=== PATIENT | female | born 1955 | race Caucasian/White ===

== ENCOUNTER 2016-10-26 18:32 | Emergency (ER) | payer OTHER, MEDICAID ==
[~2016-10-26] VITALS: Ht 162.6 cm; Wt 133.0 kg
[~2016-10-26 18:32] MED LIST: FURO20TA3 PO; GABA300C16 PO; HYDR-3498 PO; POTA8TAB2 PO
[2016-10-26 18:38] VITALS: Ht 162.6 cm; Wt 133.0 kg
[2016-10-26] MEDS ORDERED: morphine 4 MG/ML VIAL IV STA (19:09)
[2016-10-26] MEDS ORDERED: ONDANSETRON 4 MG INJ IV STA (19:09)
[2016-10-26 19:35] LABS: ADD SCAN DIFF NO
[2016-10-26 19:38] LABS: BASOPHILS % 0.4 % (0.0-2.0); EOSINOPHILS # 0.1 10^3/ul (0.0-0.5); EOSINOPHILS % 1.4 % (0.0-7.0); HEMATOCRIT 37.6 % (37.0-47.0); HEMOGLOBIN 12.4 g/dl (12.0-16.0); LYMPHOCYTES # 2.6 10^3/ul (0.8-2.9); LYMPHOCYTES % 35.5 % (15.0-51.0); MEAN CORPUSCULAR HEMOGLOBIN 32.9 pg (29.0-33.0); MEAN CORPUSCULAR VOLUME 99.7 fl (82.0-101.0); MEAN PLATELET VOLUME 10.5 fl (7.4-10.4); MONOCYTE # 0.5 10^3/ul (0.3-0.9); MONOCYTES % 7.4 % (0.0-11.0); PLATELET COUNT 219 10^3/UL (140-415); RED BLOOD COUNT 3.77 10^6/ul (4.20-5.40); RED CELL DISTRIBUTION WIDTH 13.2 % (11.5-14.5); WHITE BLOOD COUNT 7.3 10^3/ul (4.8-10.8)
[2016-10-26 19:39] LABS: ADD UMIC YES; URINE BILIRUBIN (Dip) NEGATIVE (NEGATIVE); URINE BLOOD (Dip) TRACE (NEGATIVE); URINE COLOR LT. YELLOW (YELLOW); URINE GLUCOSE (Dip) NEGATIVE (NEGATIVE); URINE KETONES (Dip) NEGATIVE (NEGATIVE); URINE LEUKOCYTE ESTERASE (Dip) NEGATIVE (NEGATIVE); URINE NITRITE (Dip) NEGATIVE (NEGATIVE); URINE TOTAL PROTEIN (Dip) NEGATIVE (NEGATIVE); URINE UROBILINOGEN (Dip) 0.2 E.U./dL (0.1-1.0)
[2016-10-26] MEDS ORDERED: GLIP-95 PO (19:47)
[2016-10-26] MEDS ORDERED: METF500T4 PO (19:47)
[2016-10-26] MEDS ORDERED: GEMF600T60 PO (19:48)
[2016-10-26 19:59] LABS: SQUAMOUS EPITHELIAL CELL,UR FEW; URINE RBCS 0-2 /HPF (0)
[2016-10-26 20:03] LABS: ALBUMIN 3.9 g/dl (3.3-4.9); ALBUMIN/GLOBULIN RATIO 1.11; BILIRUBIN,INDIRECT 0.5 mg/dl (0-1.1); BILIRUBIN,TOTAL 0.5 mg/dl (0.2-1.3); CALCIUM 9.1 mg/dl (8.4-10.2); CREATININE 0.59 mg/dl (0.44-1.00); POTASSIUM 4.1 mmol/L (3.5-5.1); TOTAL PROTEIN 7.4 g/dl (6.1-8.1)
[2016-10-26 20:22] VITALS: TEMP 98.4
--- NOTE | 2016-10-26 20:41 | RADRPT ---
PROCEDURE: CT abdomen and pelvis without contrast. CLINICAL INDICATION: Abdominal Pain TECHNIQUE: CT scan of the abdomen and pelvis without contrast was performed and is reconstructed a t 2.5 mm contiguous axial intervals from the dome of the diaphragm to the inferior pubic rami.. The patient was scanned without intravenous contrast. Sagittal and coronal reformatted images were obt ained from the axial source images. The calculated radiation dose measures 1611 mGy centimeters. The CTDI measures 24 mGy. COMPARISON: CT abdomen pelvis April 09, 2014 FINDINGS: The lung bases are clear of any infiltrate. There is a stable 3 mm benign appearing noncalcified no dule in the right middle lobe.. No effusion is seen. The liver is of normal size and contour with no solid mass or ductal dilatation. There is a [address] on the anterior aspect of the left lobe. There is fatty infiltration. gallbladder has been benjamin oscar. No splenic or pancreatic abnormalities present. there is a stable 17 mm noncalcified low densi ty right adrenal nodule compatible with an adenoma. Kidneys are of normal size and contour. No hydronephrosis, calculus or masses seen. Ureters are o f normal course and caliber with no stone. No bladder mass or stone is present. Uterus appears norm al. No adnexal mass is identified. There is no aneurysm. No adenopathy is present. No bowel mass or obstruction is present. The appendix is normal. No phlegmon, ascites or pneumop eritoneum is visualized. Degenerative changes is seen in the facet joints in the lower lumbar spine with L3-L4 central stenos is. IMPRESSION: No evidence of urolithiasis, obstructive uropathy, diverticulitis or appendicitis. Stable 3 mm right middle lobe nodule likely representing granuloma. Fatty liver. Left hepatic cyst. Post cholecystectomy. Presumed right adrenal adenoma unchanged. 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 .Christiano Ferguson MD, Date Time Electronically viewed and signed by .Christiano Ferguson MD, on 10/26/2016 20:41 .A/
[2016-10-26] MEDS ORDERED: HYDR-902 PO (21:12)
[2016-10-26] MEDS ORDERED: ONDA4TAB14 PO (21:12)
[2016-10-26 21:32] VITALS: BP 104/58; PULSE 74; RESP 20
--- NOTE | 2016-10-26 22:00 | ERD ---
ER Documentation Chief Complaint Date/Time DATE: 10/26/16 TIME: 21:58 Chief Complaint lower abd pain x 3 days "feels bloated" HPI Patient is a 61-year-old female with diabetes and high cholesterol who presents with abdominal pain. The patient has right lower quadrant abdominal pain. The pain comes and goes. She says that her belly feels "hard". She has had this pain for 3 days but it was worse today. The patient denies fevers. She tried Advil. There is no nausea or, vomiting, or diarrhea. ROS All systems reviewed and are negative except as per history of present illness. Medications Home Meds Active Scripts Ondansetron (Ondansetron Odt) 4 Mg Tab.rapdis, 4 MG PO Q6H Y for NAUSEA AND/OR VOMITING, #30 TAB Prov:FERNANDO PATTERSON MD 10/26/16 Hydrocodone/Acetaminophen (Grover 10-325 Tablet) 1 Each Tablet, 1 TAB PO Q6H Y for PAIN, #7 TAB Prov:FERNANDO PATTERSON MD 10/26/16 Reported Medications Gemfibrozil* (Gemfibrozil*) 600 Mg Tablet, 600 MG PO DAILY, TAB 10/26/16 Metformin Hcl* (Metformin Hcl*) 500 Mg Tablet, 500 MG PO WITH BREAKFAST DINNE, # 60 TAB 10/26/16 Glipizide* (Glipizide*) 10 Mg Tablet, 10 MG PO AC BREAKFAST DINNER, TAB 10/26/16 Gabapentin* (Gabapentin*) 300 Mg Capsule, 300 MG PO BID, CAP 04/09/14 Discontinued Reported Medications Potassium Chloride* (Klor-Con*) 8 Meq Tablet.sa, 8 MEQ PO DAILY, TAB 04/09/14 Furosemide* (Furosemide*) 20 Mg Tablet, 20 MG PO DAILY, TAB 04/09/14 Hydrocodone Bit-Acetaminophen* (Grover*) 5-325 Mg Tab, 1 TAB PO BID Y for PAIN, TAB 04/09/14 Allergies Allergies: Coded Allergies: Penicillins (Verified Allergy, Unknown, 10/26/16) PMhx/Soc History of Surgery: Yes (, JOSE CARLOS) Anesthesia Reaction: No Hx Neurological Disorder: No Hx Respiratory Disorders: No Hx Cardiac Disorders: Yes (HTN) Hx Psychiatric Problems: No Hx Miscellaneous Medical Probl: Yes (HIGH CHOLESTEROL) Hx Alcohol Use: No Hx Substance Use: No Hx Tobacco Use: No Smoking Status: Unknown if ever smoked FmHx Family History: No diabetes Physical Exam Vitals Vital Signs Date Time Temp Pulse Resp B/P Pulse Ox O2 Delivery O2 Flow Rate FiO2 10/26/16 21:32 74 20 104/58 100 Room Air 10/26/16 20:22 98.4 94 20 119/58 100 Room Air 10/26/16 18:38 98.3 78 20 153/72 98 Physical Exam Const: Mild distress Head: Atraumatic Eyes: Normal Conjunctiva ENT: Normal External Ears, Nose and Mouth. Neck: Full range of motion..~ No meningismus. Resp: Clear to auscultation bilaterally Cardio: Regular rate and rhythm, no murmurs Abd: Soft, right lower quadrant tenderness to palpation without rebound or guarding, no hernias palpated Skin: No petechiae or rashes Back: No midline or flank tenderness Ext: No cyanosis, or edema Neur: Awake and alert Psych: Normal Mood and Affect Result Diagram: 10/26/16192710/26/161927 Results 24 hrs Laboratory Tests Test 10/26/16 19:28 White Blood Count 7.310^3/ul Red Blood Count 3.7710^6/ul Hemoglobin 12.4g/dl Hematocrit 37.6% Mean Corpuscular Volume 99.7fl Mean Corpuscular Hemoglobin 32.9pg Mean Corpuscular Hemoglobin Concent 33.0g/dl Red Cell Distribution Width 13.2% Platelet Count 63259^3/UL Mean Platelet Volume 10.5fl Neutrophils % 55.0% Lymphocytes % 35.5% Monocytes % 7.4% Eosinophils % 1.4% Basophils % 0.4% Nucleated Red Blood Cells % 0.0/100WBC Neutrophils # 4.010^3/ul Lymphocytes # 2.610^3/ul Monocytes # 0.510^3/ul Eosinophils # 0.110^3/ul Basophils # 0.010^3/ul Nucleated Red Blood Cells # 0.010^3/ul Urine Color LT. YELLOW Urine Clarity CLEAR Urine pH 6.0 Urine Specific [place] 1.025 Urine Ketones NEGATIVE Urine Nitrite NEGATIVE Urine Bilirubin NEGATIVE Urine Urobilinogen 0.2 E.U./dL Urine Leukocyte Esterase NEGATIVE Urine Microscopic RBC 0-2/HPF Urine Microscopic WBC 0-2/HPF Urine Squamous Epithelial Cells FEW Urine Hemoglobin TRACE Urine Glucose NEGATIVE% Urine Total Protein NEGATIVE Sodium Level 139mmol/L Potassium Level 4.1mmol/L Chloride Level 104mmol/L Carbon Dioxide Level 30mmol/L Anion Gap 9 Blood Urea Nitrogen 19mg/dl Creatinine 0.59mg/dl Glucose Level 165mg/dl Calcium Level 9.1mg/dl Total Bilirubin 0.5mg/dl Direct Bilirubin 0.00mg/dl Indirect Bilirubin 0.5mg/dl Aspartate Amino Transf (AST/SGOT) 19IU/L Alanine Aminotransferase (ALT/SGPT) 28IU/L Alkaline Phosphatase 147IU/L Total Protein 7.4g/dl Albumin 3.9g/dl Globulin 3.50g/dl Albumin/Globulin Ratio 1.11 Lipase 47U/L Current Medications Medications (Trade) Dose Ordered Sig/[place] Route PRN Reason Start Time Stop Time Status Last Admin Dose Admin Morphine Sulfate (morphine) 4 mg ONCE STAT IV 10/26/16 19:09 10/26/16 19:11 DC 10/26/16 19:29 Ondansetron HCl (Zofran Inj) 4 mg ONCE STAT IV 10/26/16 19:09 10/26/16 19:11 DC 10/26/16 19:29 Procedures/MDM PROCEDURE: CT abdomen and pelvis without contrast. CLINICAL INDICATION: Abdominal Pain TECHNIQUE: CT scan of the abdomen and pelvis without contrast was performed and is reconstructed at 2.5 mm contiguous axial intervals from the dome of the diaphragm to the inferior pubic rami.. The patient was scanned without intravenous contrast. Sagittal and coronal reformatted images were obtained from the axial source images. The calculated radiation dose measures 1611 mGy centimeters. The CTDI measures 24 mGy. COMPARISON: CT abdomen pelvis April 09, 2014 FINDINGS: The lung bases are clear of any infiltrate. There is a stable 3 mm benign appearing noncalcified nodule in the right middle lobe.. No effusion is seen. The liver is of normal size and contour with no solid mass or ductal dilatation. There is a 13 mm cyst on the anterior aspect of the left lobe. There is fatty infiltration. gallbladder has been removed. No splenic or pancreatic abnormalities present. there is a stable 17 mm noncalcified low density right adrenal nodule compatible with an adenoma. Kidneys are of normal size and contour. No hydronephrosis, calculus or masses seen. Ureters are of normal course and caliber with no stone. No bladder mass or stone is present. Uterus appears normal. No adnexal mass is identified. There is no aneurysm. No adenopathy is present. No bowel mass or obstruction is present. The appendix is normal. No phlegmon , ascites or pneumoperitoneum is visualized. Degenerative changes is seen in the facet joints in the lower lumbar spine with L3-L4 central stenosis. IMPRESSION: No evidence of urolithiasis, obstructive uropathy, diverticulitis or appendicitis. Stable 3 mm right middle lobe nodule likely representing granuloma. Fatty liver. Left hepatic cyst. Post cholecystectomy. Presumed right adrenal adenoma unchanged. 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 .Christiano Ferguson MD, MD Date Time Electronically viewed and signed by .Christiano Ferguson MD, on 10/26/2016 20: 41 Patient is a 61-year-old female with diabetes and high cholesterol presents with abdominal pain. The patient has right lower quadrant abdominal pain. Laboratory studies were basically normal. CT scan shows no sign of appendicitis or bowel obstruction. At this point I doubt appendicitis, cholecystitis, pancreatitis, or bowel obstruction. I believe outpatient management is appropriate. The patient will need to follow-up with the primary doctor tomorrow morning for reevaluation. She will be given a short course of Grover and Zofran for symptomatically relief. She can return for any worsening symptoms. Departure Diagnosis: Primary Impression: Abdominal pain Abdominal location: right lower quadrant Qualified Code: R10.31 - Right lower quadrant abdominal pain Condition: Fair Patient Instructions: Abdominal Pain Referrals: AMARA GUTIERREZ MD (PCP) Additional Instructions: Visite a thompson dulce larson para un EXAMEN.Regrese a estas instalaciones si no se mejora morena esperbamos o morena jaimie pan. FERNANDO PATTERSON MD Oct 26, 2016 22:00
== END 2016-10-26 22:45 | disposition home or self-care (01) ==
LOC: E/R 18:32
DX: R10.31 Right lower quadrant pain (principal); E11.9 Type 2 diabetes mellitus without complications; I10 Essential (primary) hypertension; Z79.84 Long term (current) use of oral hypoglycemic drugs
CPT/HCPCS: 74176; 80053; 81001; 83690; 85025; J2270; J2405; 36415; 81003; 96374; 96375